=== PATIENT | male | born 1985 | race Caucasian/White ===

== ENCOUNTER 2021-04-06 13:18 | Emergency (ER) | payer OTHER, SELFPAY ==
[2021-04-06 15:17] VITALS: BP 116/65; PULSE 62; RESP 16; TEMP 528.3; TEMP 983; O2SAT 98; BMI 25.8
[2021-04-06] MEDS: Acetaminophen 325 MG TABLET 975 MG PO (16:16)
[2021-04-06] MEDS: Diphth,Pertus(ACell),Tet Adult 0.5 ML SYRINGE IM (16:17)
--- NOTE | 2021-04-06 16:33 | ED.WOUNDLAC ---
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 He reports that he has full sensation. He is not up-to-date on tetanus. He denies any other injuries complaints or concerns at this time. Onset (ago): minute(s) (Prior to arrival) Extremity Location: right: hand (Index finger) Place: work Patient tetanus UTD: No Context: accidental Associated symptoms: pain Treatments prior to arrival: bandage Related Data Previous Rx's Medication Instructions Recorded acetaminophen 500 mg tablet 1,000 mg PO QID PRN #14 tab 04/06/21 (Tylenol Extra Strength) cephalexin 500 mg capsule 500 mg PO Q6H 10 Days #40 cap 04/06/21 ibuprofen 800 mg tablet 800 mg PO Q8H PRN #14 tab 04/06/21 oxycodone 5 mg tablet 5 mg PO Q6H PRN #14 tab 04/06/21 Allergies Allergy/AdvReac Type Severity Reaction Status Date / Time No Known Allergies Allergy Unverified 03/18/20 16:54 Review of Systems Review of Systems: Constitutional : No Fever, No Chills, Cardiovascular : No Chest Pain, No SOB Respiratory : No Dyspnea Gastrointestinal : No abdominal pain Musculoskeletal : No Joint Swelling Skin : positive skin partial amputation, No Foreign bodies, No rash, No surrounding erythema Neuro : No Weakness, No Numbness/tingling Psych : No SI/HI/thoughts of self injury Yes all other systems are reviewed and are negative [facility] Past Medical History Attestation statement: The following information was validated with the patient. Social History Social History Advance Directives: No Advance Directives Information Provided: No Physical Exam Vital Signs: Vital Signs: Last Vital Signs Temp 983.0 F H 04/06/21 15:17 Pulse 62 04/06/21 15:17 Resp 16 04/06/21 15:17 BP 116/65 04/06/21 15:17 Pulse Ox 98 04/06/21 15:17 Body Mass Index 25.8 vital signs have been reviewed as normal and appeared to be correct. Blood pressure normal. Heart rate normal. Respiration rate normal. Temperature normal. Oxygen saturation normal. Appearance: Alert. Oriented X3. No acute distress. Head: Normal external exam. Normocephalic. Atraumatic. Eyes: PERRLA. EOMI. Conjunctiva and sclera normal. Eyelids normal. ENT: Pharynx normal. Uvula midline. Moist mucous membranes. Neck: Normal inspection. Neck supple. FROM. CVS: Normal heart rate and rhythm. Respiratory: No respiratory distress. Painless inspiration. Back: Full range of motion noted. No rashes/lesion/induration/fluctuance or signs of infection noted. Skin: Skin warm and dry. Normal skin color. Normal skin turgor. Patient with a partial amputation/skin avulsion to right hand index finger at the distal aspect involving partial nail at the radial aspect no bony tenderness or bone exposure noted. No obvious ligamentous or tendon injury is noted. Patient has full sensation. No foreign bodies are noted. No additional rashes/lesions/lacerations noted. Extremities: Tenderness up patient to right hand index finger at the distal aspect where the partial amputation is otherwise full range of motion. Otherwise all other Extremities exhibit normal range of motion and nontender. Neuro: Oriented X 3. No motor deficit. No sensory deficit. Reflexes normal. Normal steady gait. No focal neuro deficits noted. Vascular: + radial pulses Normal cap refill. No cyanosis noted to upper extremity nails Course Course Course Narrative: 35-year-old male presenting to the ED with partial amputation/skin avulsion to right hand index finger tip amputation at the radial aspect involving part of the nail. No foreign bodies. Patient has full range of motion. No tender or ligament injury. No x-ray indicated at this time due to patient does not have any bony tenderness and no bone exposure is noted. He had some mild bleeding therefore Surgicel was placed and bleeding is now controlled. Patient tolerated procedure well. Tetanus was updated. Will DC home with symptomatic treatment and antibiotics and instructions to follow up with [facility]. Patient understands agrees with this plan. MDM - Wound/Laceration Medical Records Attestation: I reviewed the patient's medical records. Discharge Plan Discharge Clinical Impression: Avulsion of skin of finger, Work related injury Patient Disposition: Home, Self-Care Instructions: Skin Avulsion (ED), Return to Work Instructions (ED) Prescriptions: New ibuprofen 800 mg tablet 800 mg PO Q8H PRN (Reason: pain) Qty: 14 RF: 0 acetaminophen [Tylenol Extra Strength] 500 mg tablet 1,000 mg PO QID PRN (Reason: fever or pain) Qty: 14 RF: 0 cephalexin 500 mg capsule 500 mg PO Q6H 10 Days Qty: 40 RF: 0 oxycodone 5 mg tablet 5 mg PO Q6H PRN (Reason: pain) Qty: 14 RF: 0 Referrals: Tony Carey MD [Primary Care Provider] - 2 days Candy Avitia MD [Physician] - 2 days Stand Alone Forms: Work/School Release Print Language: Kinyarwanda
[2021-04-06 16:46] VITALS: BP 117/67; PULSE 67; RESP 16; TEMP 36.6; O2SAT 98
== END 2021-04-06 17:12 | disposition home or self-care (01) ==
PROVIDERS: Emergency Provider Emergency Medicine; PCP Internal Medicine Interventional Cardiology
DX: S61.310A Laceration without foreign body of right index finger with damage to nail, initial encounter (principal); W26.8XXA Contact with other sharp object(s), not elsewhere classified, initial encounter; Y93.89 Activity, other specified; Y92.89 Other specified places as the place of occurrence of the external cause; Y99.0 Civilian activity done for income or pay
CPT/HCPCS: 90471; 90715; 99284

== ENCOUNTER → 2021-04-18 10:46 | Outpatient (BNVA) | payer OTHER, SELFPAY | PROVIDERS: Visit Provider Physician Assistant | DX: S61.310A Laceration without foreign body of right index finger with damage to nail, initial encounter (principal); W26.8XXA Contact with other sharp object(s), not elsewhere classified, initial encounter; Y93.G9 Activity, other involving cooking and grilling; Y92.511 Restaurant or cafe as the place of occurrence of the external cause; Y99.0 Civilian activity done for income or pay | CPT/HCPCS: 99202 ==

== ENCOUNTER → 2021-04-27 12:04 | Outpatient (BNVA) | payer OTHER, SELFPAY | PROVIDERS: Visit Provider Physician Assistant | DX: S61.210A Laceration without foreign body of right index finger without damage to nail, initial encounter (principal); W31.89XA Contact with other specified machinery, initial encounter; Y93.G1 Activity, food preparation and clean up; Y92.511 Restaurant or cafe as the place of occurrence of the external cause; Y99.0 Civilian activity done for income or pay | CPT/HCPCS: 99212 ==